=== PATIENT | female | born 1950 | race Caucasian/White ===

== ENCOUNTER 2016-08-26 09:26 | Observation (INO) ==
[2016-08-26] MEDS ORDERED: 0.9 % Sodium Chloride 1,000 ML IVC ONE (09:43)
[2016-08-26 10:06] LABS: Bilirubin,Urine Negative (Negative); Blood,Urine Negative (Negative); Color,Urine Yellow (Yellow); Glucose,Urine (UA) Normal (Normal); Ketones,Urine Negative (Negative); Leukocyte Esterase,Urine Negative (Negative); Nitrite,Urine Negative (Negative); Protein,Urine 30 mg/dL (Neg-Trace); Specific Gravity,Urine 1.017 (1.010-1.025); Urobilinogen,Urine Normal (Normal)
[2016-08-26 10:08] LABS: Bacteria,Urine None Seen per hpf (None-Few); Hyaline Casts,Urine None Seen per lpf (None-Few); RBC,Urine 0-3 per hpf (0-3); Squamous Epithelial Cell,Urine Many per lpf (None-Few); WBC,Urine 0-3 per hpf (0-3)
[2016-08-26 10:09] LABS: Clarity,Urine Clear (Clear)
--- NOTE | 2016-08-26 10:20 | Emergency Department Note ---
Disposition Clinical Impression: Acute cholecystitis Disposition: Admitted As Inpatient Condition: Fair Referrals: Fabiana Gonzalez, YENY [Primary Care Provider] - Forms: ED Satisfaction Letter Time of Disposition: 14:43 Abdominal Pain HPI - General Chief Complaint: ED Weakness Stated Complaint: ABD pain,weakness,syncopal Time Seen by Provider: 08/26/16 09:42 Source: patient, family Mode of arrival: ambulatory Nursing Notes Reviewed: Yes Vital Signs Reviewed: Yes - History of Present Illness HPI Narrative: Patient is a 65-year-old female who presents with same day history of abdominal pain. Pain began in the middle of the night and gradually worsened to a peak at about 1 AM this morning. Patient describes the pain as a steady right sided back pain that wraps around the right lateral side to the right upper quadrant. Patient denies having had pain like this in the past. Pain is rated an 8 out of 10. Pain is associated with diaphoresis, weakness, dizziness , lightheadedness, and nausea, multiple episodes of nonbilious vomiting. Upon presentation to [facility] patient had an episode of syncope or near syncope during transfer from a bench to wheelchair. Patient had decreased responsiveness following this episode but regained positiveness a few minutes later. Patient admits recent sinus infection which was treated with a Z -Arnold. She states last antibiotic pill was taken last Tuesday. Denies ear pain , nasal congestion, sore throat, chest pain, racing heart, palpitations, peripheral edema, dyspnea, cough, wheeze, hematemesis, diarrhea, constipation, hematochezia, melena, muscle aches, joint pain, rash. Pain Scale: 8 - Related Data Home Medications Medication Instructions Recorded Confirmed Aspirin 325 mg PO DAILY 06/11/15 07/10/15 Varenicline tartrate [Chantix 1 each PO AD 06/11/15 07/10/15 Starter Month Pack] Nitroglycerin [Nitrostat] 0.4 mg SL Q5-6MIN PRN 07/10/15 07/10/15 Atorvastatin Calcium [Lipitor] 20 mg PO DAILY 08/26/16 08/26/16 Cholecalciferol (D-3) [Vitamin D] 1,000 unit PO DAILY 08/26/16 08/26/16 Gabapentin [Neurontin] 300 mg PO TID 08/26/16 08/26/16 Metoprolol XL (24 HR) Succ [Toprol 25 mg PO DAILY 08/26/16 08/26/16 XL] Allergies Allergy/AdvReac Type Severity Reaction Status Date / Time venom-honey bee Allergy See Verified 06/11/15 19:47 [bee venom (honey bee)] Comments All systems ED: reviewed and negative except as stated. Constitutional: Reports: as per HPI Eyes: Reports: as per HPI ENT ED: Reports: as per HPI Cardiovascular: Reports: as per HPI Respiratory: Reports: as per HPI Gastrointestinal: Reports: as per HPI Musculoskeletal: Reports: as per HPI Integumentary: Reports: as per HPI Neurological: Reports: as per HPI Psychiatric: Reports: as per HPI Endocrine: Reports: as per HPI Hematological/Lymphatic: Reports: as per HPI Allergic/Immunologic: Reports: as per HPI Abdominal Pain PMH - Past Medical History Medical history: Reports: hyperlipidemia, hypertension, other (Previous history of pancreatitis) Female Surgical History: Reports: other CONTENT EDITOR history: Reports: bilateral tubal ligation Psychiatric history: Reports: no psych history - Social History Smoking status: Former smoker Alcohol use: Reports: none Drug use: Reports: none Physical Exam - General Limitations: no limitations General appearance: alert, in distress - Eye Eye exam: Present: normal appearance, EOMI - ENT ENT exam: normal exam, mucous membranes dry - Neck Neck exam: Present: normal inspection, full ROM - Respiratory Respiratory exam: Present: normal lung sounds bilaterally. Absent: respiratory distress, wheezes, stridor, accessory muscle use - Cardiovascular Cardiovascular exam: Present: regular rate, normal rhythm, systolic murmur (1/6 systolic murmur), +S2 - Abdominal Exam Abdominal exam: Present: soft, tenderness (Exquisite tenderness to palpation of right upper quadrant. Negative Koo sign.), guarding (Voluntary guarding to palpation of right upper quadrant and right lower quadrant), normal bowel sounds. Absent: distention, rebound, rigidity Abdominal tenderness: Present: RUQ (.), RLQ, moderate - Extremities Exam Extremities exam: Present: full ROM - Neurological Exam Neurological exam: Present: oriented X3, CN II-XII intact - Psychiatric Psychiatric exam: Present: normal affect, normal mood - Skin Skin exam: Present: warm, dry, intact Course Vital Signs Temperature 97.7 F 08/26/16 09:36 Pulse Rate 72 08/26/16 09:36 Respiratory Rate 20 08/26/16 09:36 Blood Pressure 188/87 08/26/16 09:36 O2 Sat by Pulse Oximetry 100 08/26/16 09:36 Temperature 97.7 F 08/26/16 09:36 Pulse Rate 80 08/26/16 11:41 Respiratory Rate 18 08/26/16 11:41 Blood Pressure 173/86 08/26/16 11:41 O2 Sat by Pulse Oximetry 96 08/26/16 11:41 Oxygen Delivery Oxygen Delivery Room Air Abdominal Pain - MDM Narrative Medical decision making narrative: Patient is a 65F who presented to to hospital with 1 day history of RUQ abdominal pain associated with nausea, bilious vomiting. Labs revealed elevated WBC and Alk phos. Bedside US was performed, which ruled out presence of AAA. Beside US revealed multiple cholelithiasis. CT scan of abdomen revealed no AAA, nephrolithiasis, or intra-abdominal process. However, CT did demonstrate cholelithiasis. RUQ US was performed which revealed GB wall thickening with positive sonographic Vandana's sign. Patient has clinical and radiographical presentation of acute cholecystitis. Surgery has accepted this patient. - Lab Data Lab results reviewed: Yes I reviewed the patient's lab results. Result diagrams: 08/26/16 10:46 08/26/16 10:13 Lab Results 08/26/16 08/26/16 08/26/16 Range/Units 09:42 10:13 10:13 WBC (4.3-11.1) K/mcL RBC (3.82-4.97) M/mcL Hgb (11.5-15.4) g/dL Hct (35.3-44.9) % MCV (83.0-100.0) fL MCH (28.0-33.3) pg MCHC (31.6-35.5) g/dL RDW (11.5-14.5) % Plt Count (140-400) K/mcL MPV (9.4-12.4) fL Immature Gran % (0-4) % Seg Neutrophils % % Lymphocytes % % Monocytes % % Eosinophils % % Basophils % % Neutrophils # (1.6-8.9) K/mcL Lymphocytes # (0.6-4.6) K/mcL Monocytes # (0.0-1.3) K/mcL Eosinophils # (0.0-0.6) K/mcL Basophils # (0.0-0.2) K/mcL Sodium 140 (136-145) mEq/L Potassium 3.7 (3.5-4.5) mEq/L Chloride 105 (98-109) mEq/L Carbon Dioxide 25 (19-29) mEq/L BUN 14 (7-20) mg/dL Creatinine 0.79 (0.57-1.11) mg/dL Est GFR ( Amer) > 60 (> 60) Est GFR (Non-Af Amer) > 60 (> 60) BUN/Creatinine Ratio 18 (6-26) Glucose 148 H (70-99) mg/dL Calculated Osmolality 293 (280-300) Lactic Acid (0.5-2.2) mmol/L Calcium 9.3 (8.6-10.8) mg/dL Total Bilirubin 0.3 (0.2-1.2) mg/dL AST 17 (5-34) Units/L ALT 18 (0-55) Units/L Alkaline Phosphatase 137 H (38-126) Units/L Troponin I 0.01 (0-0.03) ng/mL Serum Total Protein 8.0 (6.0-8.3) g/dL Albumin 3.6 (3.5-5.0) g/dL Globulin 4.4 H (2.4-3.5) g/dL Albumin/Globulin Ratio 0.8 L (1.1-2.2) Lipase 43 (8-78) Units/L Urine Color Yellow (Yellow) Urine Clarity Clear (Clear) Urine pH 8.0 (5.0-8.0) pH Units Ur Specific [place] 1.017 (1.010-1.025) Urine Protein 30 H (Neg-Trace) mg/dL Urine Glucose (UA) Normal (Normal) mg/dL Urine Ketones Negative (Negative) mg/dL Urine Blood Negative (Negative) Urine Nitrite Negative (Negative) Urine Bilirubin Negative (Negative) Urine Urobilinogen Normal (Normal) mg/dL Ur Leukocyte Esterase Negative (Negative) Urine Microscopic RBC 0-3 (0-3) per hpf Urine Microscopic WBC 0-3 (0-3) per hpf Ur Squamous Epith Cells Many H (None-Few) per lpf Urine Bacteria None Seen (None-Few) per hpf Hyaline Casts None Seen (None-Few) per lpf Ur Culture Indicated? NO (NO) Specimen Rejected 08/26/16 08/26/16 08/26/16 Range/Units 10:22 10:23 10:46 WBC 17.1 H (4.3-11.1) K/mcL RBC 5.25 H (3.82-4.97) M/mcL Hgb 15.0 (11.5-15.4) g/dL Hct 44.3 (35.3-44.9) % MCV 84.4 (83.0-100.0) fL MCH 28.6 (28.0-33.3) pg MCHC 33.9 (31.6-35.5) g/dL RDW 13.2 (11.5-14.5) % Plt Count 271 (140-400) K/mcL MPV 9.6 (9.4-12.4) fL Immature Gran % 0.7 (0-4) % Seg Neutrophils % 89.7 % Lymphocytes % 6.2 % Monocytes % 2.9 % Eosinophils % 0.1 % Basophils % 0.4 % Neutrophils # 15.3 H (1.6-8.9) K/mcL Lymphocytes # 1.1 (0.6-4.6) K/mcL Monocytes # 0.5 (0.0-1.3) K/mcL Eosinophils # 0.0 (0.0-0.6) K/mcL Basophils # 0.1 (0.0-0.2) K/mcL Sodium (136-145) mEq/L Potassium (3.5-4.5) mEq/L Chloride (98-109) mEq/L Carbon Dioxide (19-29) mEq/L BUN (7-20) mg/dL Creatinine (0.57-1.11) mg/dL Est GFR ( Amer) (> 60) Est GFR (Non-Af Amer) (> 60) BUN/Creatinine Ratio (6-26) Glucose (70-99) mg/dL Calculated Osmolality (280-300) Lactic Acid 0.8 (0.5-2.2) mmol/L Calcium (8.6-10.8) mg/dL Total Bilirubin (0.2-1.2) mg/dL AST (5-34) Units/L ALT (0-55) Units/L Alkaline Phosphatase (38-126) Units/L Troponin I (0-0.03) ng/mL Serum Total Protein (6.0-8.3) g/dL Albumin (3.5-5.0) g/dL Globulin (2.4-3.5) g/dL Albumin/Globulin Ratio (1.1-2.2) Lipase (8-78) Units/L Urine Color (Yellow) Urine Clarity (Clear) Urine pH (5.0-8.0) pH Units Ur Specific [place] (1.010-1.025) Urine Protein (Neg-Trace) mg/dL Urine Glucose (UA) (Normal) mg/dL Urine Ketones (Negative) mg/dL Urine Blood (Negative) Urine Nitrite (Negative) Urine Bilirubin (Negative) Urine Urobilinogen (Normal) mg/dL Ur Leukocyte Esterase (Negative) Urine Microscopic RBC (0-3) per hpf Urine Microscopic WBC (0-3) per hpf Ur Squamous Epith Cells (None-Few) per lpf Urine Bacteria (None-Few) per hpf Hyaline Casts (None-Few) per lpf Ur Culture Indicated? (NO) Specimen Rejected Volume 08/26/16 Range/Units 11:44 WBC (4.3-11.1) K/mcL RBC (3.82-4.97) M/mcL Hgb (11.5-15.4) g/dL Hct (35.3-44.9) % MCV (83.0-100.0) fL MCH (28.0-33.3) pg MCHC (31.6-35.5) g/dL RDW (11.5-14.5) % Plt Count (140-400) K/mcL MPV (9.4-12.4) fL Immature Gran % (0-4) % Seg Neutrophils % % Lymphocytes % % Monocytes % % Eosinophils % % Basophils % % Neutrophils # (1.6-8.9) K/mcL Lymphocytes # (0.6-4.6) K/mcL Monocytes # (0.0-1.3) K/mcL Eosinophils # (0.0-0.6) K/mcL Basophils # (0.0-0.2) K/mcL Sodium (136-145) mEq/L Potassium (3.5-4.5) mEq/L Chloride (98-109) mEq/L Carbon Dioxide (19-29) mEq/L BUN (7-20) mg/dL Creatinine (0.57-1.11) mg/dL Est GFR ( Amer) (> 60) Est GFR (Non-Af Amer) (> 60) BUN/Creatinine Ratio (6-26) Glucose (70-99) mg/dL Calculated Osmolality (280-300) Lactic Acid 1.7 (0.5-2.2) mmol/L Calcium (8.6-10.8) mg/dL Total Bilirubin (0.2-1.2) mg/dL AST (5-34) Units/L ALT (0-55) Units/L Alkaline Phosphatase (38-126) Units/L Troponin I (0-0.03) ng/mL Serum Total Protein (6.0-8.3) g/dL Albumin (3.5-5.0) g/dL Globulin (2.4-3.5) g/dL Albumin/Globulin Ratio (1.1-2.2) Lipase (8-78) Units/L Urine Color (Yellow) Urine Clarity (Clear) Urine pH (5.0-8.0) pH Units Ur Specific [place] (1.010-1.025) Urine Protein (Neg-Trace) mg/dL Urine Glucose (UA) (Normal) mg/dL Urine Ketones (Negative) mg/dL Urine Blood (Negative) Urine Nitrite (Negative) Urine Bilirubin (Negative) Urine Urobilinogen (Normal) mg/dL Ur Leukocyte Esterase (Negative) Urine Microscopic RBC (0-3) per hpf Urine Microscopic WBC (0-3) per hpf Ur Squamous Epith Cells (None-Few) per lpf Urine Bacteria (None-Few) per hpf Hyaline Casts (None-Few) per lpf Ur Culture Indicated? (NO) Specimen Rejected - Radiology Data Radiology results reviewed: Yes I reviewed the patient's radiology results. Chest X-Ray 08/26/16 09:44 IMPRESSION: No acute cardiopulmonary process. D/ 08/26/2016 11:15:34 Domingo Fernandez MD / Elva Ludwig Interpreting Provider: Domingo Fernandez MD Abdomen/Pelvis CT 08/26/16 09:54 IMPRESSION: 1. No acute intra-abdominal abnormality. 2. No acute intrapelvic abnormality. 3. No urinary tract calcifications. 4. Cholelithiasis. D/ / Eros Heard MD / Eros Heard MD Interpreting Provider: Eros Heard MD Gallbladder Ultrasound 08/26/16 12:00 IMPRESSION: Cholelithiasis along with findings concerning for acute cholecystitis including mild diffuse gallbladder wall thickening along with positive sonographic Koo's sign. Mild distention of common bile duct measuring 0.7 cm but without definite intraductal abnormality noted. Correlate clinically and with laboratory values and if there is clinical concern for biliary obstruction or choledocholithiasis consider further evaluation with MRCP or ERCP. D/ / 08/26/2016 12:53:58 Richard Liang MD / bernie Interpreting Provider: Richard Liang MD - EKG Data EKG attestation: Yes I reviewed and interpreted this EKG. EKG results narrative: EKG NSR, rate 69bpm, diffuse T wave inversions that were demonstrated on previous EKG dated 06/12/15.
[2016-08-26] MEDS ORDERED: Ondansetron 4 MG/2 ML VIAL IVP PRN ×3 (10:23→21:37)
[2016-08-26] MEDS ORDERED: *HR* Morphine 2 MG/ML SYRINGE IVP PRN (10:23)
--- NOTE | 2016-08-26 10:28 | Emergency Department Note ---
START Narrative - START START: I examined this patient and my medical decision-making was reviewed with the CINNAMON GRINDER/PA/Advanced Practice Nurse/Resident Physician. I agree with the documented findings, disposition and treatment plan as described except to the extent set forth below. I did see the patient spoke with her and examined her and a bedside ultrasound was done which does not show evidence of abdominal aortic aneurysm but there are some hyperechoic areas in the gallbladder consistent w cholelithiasis. Her pain started right flank and radiated around to the right upper quadrant and she did have a syncopal episode which was preceded by lightheadedness. She was caught by her daughter so there was no injury. No biting of the tongue, blood in the mouth or incontinence. She denies any localized numbness or weakness of the extremities, slurred speech, facial droop or confusion. CT scan of the abdomen will be done and if negative she will get a ultrasound right upper quadrant, labs are pending, IV fluids, I did review the patient's EKG which does show normal sinus rhythm and does have evidence of ST and T-wave changes and we were looking for a previous EKG to compare this to. Labs including troponin are pending. [id number] I did compare this EKG to the previous EKG which was done on 06/12/2015 and there are not new significant changes. This does appear very similar to the previous EKG. Test results are pending. 1034
[2016-08-26 10:33] LABS: Alanine Aminotransferase 18 Units/L (0-55); Albumin 3.6 g/dL (3.5-5.0); Albumin/Globulin Ratio 0.8 (1.1-2.2); Alkaline Phosphatase 137 Units/L (38-126); Aspartate Amino Transferase 17 Units/L (5-34); BUN/Creatinine Ratio 18 (6-26); Bilirubin,Total 0.3 mg/dL (0.2-1.2); Blood Urea Nitrogen 14 mg/dL (7-20); Calcium 9.3 mg/dL (8.6-10.8); Carbon Dioxide 25 mEq/L (19-29); Chloride 105 mEq/L (98-109); Globulin 4.4 g/dL (2.4-3.5); Glucose 148 mg/dL (70-99); Lipase 43 Units/L (8-78); Osmolality,Calculated 293 (280-300); Potassium 3.7 mEq/L (3.5-4.5); Sodium 140 mEq/L (136-145); eGFR For African Americans > 60 (> 60); eGFR For Non-African Americans > 60 (> 60)
[2016-08-26 10:59] LABS: Basophils # 0.1 K/mcL (0.0-0.2); Basophils % 0.4 %; Eosinophils % 0.1 %; Hematocrit 44.3 % (35.3-44.9); Immature Granulocytes % 0.7 % (0-4); Lymphocytes # 1.1 K/mcL (0.6-4.6); Lymphocytes % 6.2 %; Mean Corpuscular HGB Conc 33.9 g/dL (31.6-35.5); Mean Corpuscular Hemoglobin 28.6 pg (28.0-33.3); Mean Corpuscular Volume 84.4 fL (83.0-100.0); Mean Platelet Volume 9.6 fL (9.4-12.4); Monocytes # 0.5 K/mcL (0.0-1.3); Monocytes % 2.9 %; Neutrophils # 15.3 K/mcL (1.6-8.9); Platelet Count 271 K/mcL (140-400); Red Blood Count 5.25 M/mcL (3.82-4.97); Red Cell Distribution Width 13.2 % (11.5-14.5); Segmented Neutrophils % 89.7 %
[2016-08-26] MEDS ORDERED: *HR* Promethazine 25 MG/ML VIAL IVP ONE (11:14)
[2016-08-26] MEDS ORDERED: *HR* Morphine 2 MG/ML SYRINGE IVP ONE (11:14)
[2016-08-26] MEDS ORDERED: cefOXitin 2,000 MG in D5% in Water (Mini-Bag+) 100 ML IVPB ONE (14:11)
[2016-08-26] MEDS ORDERED: Naloxone 0.4 MG/ML INJ IVP PRN ×2 (15:21→21:37)
[2016-08-26] MEDS ORDERED: *HR* HYDROmorphone (PF) 1 MG/ML SYRINGE IVP PRN ×3 (15:24→21:37)
--- NOTE | 2016-08-26 15:25 | General Surg History&Physical ---
<Noemi Christopher Willian - Last Filed: 08/26/16 15:22> Date of Encounter: 08/26/16 Time of Encounter: 15:00 Assessment and Plan (1) Acute cholecystitis Current Visit: Yes Status: Acute The assessment and plan as outlined above was discussed with the patient and/or family members who expressed understanding and agreement. All questions were answered. Nothing by mouth IV fluids at 75 mL per hour IV antibiotics- Mefoxin 2 g every 8 hours Supportive care and pain control Risks, benefits, alternatives, expected outcomes reviewed with the patient is agreement to proceed to the operating room with Dr. Bronson for laparoscopic cholecystectomy in the next 24 hours Incentive spirometer every 1 hour while awake PPI therapy daily (2) DVT prophylaxis Current Visit: Yes Status: Acute The assessment and plan as outlined above was discussed with the patient and/or family members who expressed understanding and agreement. All questions were answered. EPCDs to bilateral lower extremities for DVT prophylaxis History of Present Illness Chief complaint: Abdominal pain HPI: Ms. Devine is a 65 year old female with a past medical history significant for pancreatitis, bleeding ulcer, sciatica, hypertension, hypercholesterolemia. She presents to the hospital with acute onset of right upper quadrant abdominal pain at 1 AM this morning. She states that the pain is severe in the right upper quadrant and does radiate into her back. She describes it as a sharp and stabbing pain. She states the pain is constant and moving makes it worse. Nothing makes it better. She has never experienced pain like this in the past. She admits to bloating of her abdomen. She did have episodes of nausea and vomiting prior to coming to the hospital. She states that the emesis was bilious in nature. She admits to fevers and chills however she states she did not check her temperature. She denies any changes in bowel habits. Denies any melena or hematochezia. She does admit to having reflux and her symptoms have been worse than typical. She denies any difficulty with urination. She has had a gallbladder ultrasound which shows concerns for acute cholecystitis. The patient be admitted to the hospital for further workup and treatment. Past Med Surg Social Fam HX - Past Medical History Source: patient, old records reviewed Medical history: GERD, hyperlipidemia, hypertension, other (Previous history of pancreatitis, sciatica, bleeding ulcer) Psychiatric history: no psych history - Past Surgical History Surgical History: other (Tubal ligation, hemorrhoidectomy, dilation and curettage, bladder repair, colonoscopy every 2 years (last was 2 years ago)) - Social History Smoking Status: Former smoker (Quit 1 year ago) Smokeless Tobacco Status: No Alcohol use: none Drug use: none Current living situation: Home - Independent Activity Level: Independent ambulation - Family History Father Living Status: Age at : 68 Cause of : CHF Hx Family Cardiac Disorders: Yes (CHF) Hx Family Cancer: Yes (LUNG) Mother Living Status: Age at : 60 Cause of : colon cancer Hx Family Cancer: Yes (colon) Brother Living Status: Still Living Hx Family Endocrine Disorder: Yes (Diabetes mellitus) Sister Living Status: Still Living Hx Family Endocrine Disorder: Yes (Diabetes mellitus) Son Living Status: Still Living Hx Family Neurologic Disorders: Yes (Epilepsy) Medications and Allergies Aspirin 325 mg PO DAILY 06/11/15 [History] Varenicline tartrate [Chantix Starter Month Pack] 1 tab PO AD 06/11/15 [History] Nitroglycerin [Nitrostat] 0.4 mg SL Q5-6MIN PRN 07/10/15 [History] Atorvastatin Calcium [Lipitor] 20 mg PO DAILY 08/26/16 [History] Cholecalciferol (D-3) [Vitamin D] 1,000 unit PO DAILY 08/26/16 [History] Gabapentin [Neurontin] 300 mg PO TID 08/26/16 [History] Metoprolol XL (24 HR) Succ [Toprol XL] 25 mg PO DAILY 08/26/16 [History] Allergies venom-honey bee [bee venom (honey bee)] Allergy (Verified 06/11/15 19:47) See Comments Patient has swelling where sting is. Review of Systems All systems PM: reviewed and no additional remarkable complaints except as stated (in the HPI) All systems PM: A 10-system review of systems was performed and is negative for pertinent findings except as documented above in the HPI. General Surgery Exam Initial Vital Signs Temp Pulse Resp BP Pulse Ox 97.7 F 72 20 188/87 100 08/26/16 09:36 08/26/16 09:36 08/26/16 09:36 08/26/16 09:36 08/26/16 09:36 - General physical appearance well developed, well nourished, moderate distress, moderate pain - Eyes normal ocular movement - ENT normal mucosa, atraumatic, normocephalic - Neck trachea midline - Respiratory normal respiratory effort, clear to auscultation, other (Diminished bibasilar bases) - Cardiovascular Cardiovascular exam: Present: RRR - Abdomen Abdomen general surgery: Present: bowel sounds present, soft, tender Abdominal Tenderness: Present: RUQ - Integumentary Integumentary general surgery: Present: warm and dry - Neurologic Present: CN 2-12 grossly intact - Musculoskeletal Present: normal gait - Psychiatric Psychiatric general surgery: Present: appropriate, oriented to person, oriented to place, oriented to time, speech is normal, memory intact Results - Labs 08/26/16 10:46 08/26/16 10:13 Abnormal lab results WBC 17.1 K/mcL (4.3-11.1) H 08/26/16 10:46 RBC 5.25 M/mcL (3.82-4.97) H 08/26/16 10:46 Neutrophils # 15.3 K/mcL (1.6-8.9) H 08/26/16 10:46 Glucose 148 mg/dL (70-99) H 08/26/16 10:13 Alkaline Phosphatase 137 Units/L (38-126) H 08/26/16 10:13 Globulin 4.4 g/dL (2.4-3.5) H 08/26/16 10:13 Albumin/Globulin Ratio 0.8 (1.1-2.2) L 08/26/16 10:13 Urine Protein 30 mg/dL (Neg-Trace) H 08/26/16 09:42 Ur Squamous Epith Cells Many per lpf (None-Few) H 08/26/16 09:42 Diabetes panel 08/26/16 Range/Units 10:13 Sodium 140 (136-145) mEq/L Potassium 3.7 (3.5-4.5) mEq/L Chloride 105 (98-109) mEq/L Carbon Dioxide 25 (19-29) mEq/L BUN 14 (7-20) mg/dL Creatinine 0.79 (0.57-1.11) mg/dL Glucose 148 H (70-99) mg/dL Calcium 9.3 (8.6-10.8) mg/dL AST 17 (5-34) Units/L ALT 18 (0-55) Units/L Alkaline Phosphatase 137 H (38-126) Units/L Albumin 3.6 (3.5-5.0) g/dL Calcium panel 08/26/16 Range/Units 10:13 Calcium 9.3 (8.6-10.8) mg/dL Albumin 3.6 (3.5-5.0) g/dL Pituitary panel 08/26/16 Range/Units 10:13 Sodium 140 (136-145) mEq/L Potassium 3.7 (3.5-4.5) mEq/L Chloride 105 (98-109) mEq/L Carbon Dioxide 25 (19-29) mEq/L BUN 14 (7-20) mg/dL Creatinine 0.79 (0.57-1.11) mg/dL Glucose 148 H (70-99) mg/dL Calcium 9.3 (8.6-10.8) mg/dL Adrenal panel 08/26/16 Range/Units 10:13 Sodium 140 (136-145) mEq/L Potassium 3.7 (3.5-4.5) mEq/L Chloride 105 (98-109) mEq/L Carbon Dioxide 25 (19-29) mEq/L BUN 14 (7-20) mg/dL Creatinine 0.79 (0.57-1.11) mg/dL Glucose 148 H (70-99) mg/dL Calcium 9.3 (8.6-10.8) mg/dL Total Bilirubin 0.3 (0.2-1.2) mg/dL AST 17 (5-34) Units/L ALT 18 (0-55) Units/L Alkaline Phosphatase 137 H (38-126) Units/L Albumin 3.6 (3.5-5.0) g/dL All other labs normal. - Imaging Additional studies: Chest X-Ray 08/26/16 09:44 IMPRESSION: No acute cardiopulmonary process. D/ 08/26/2016 11:15:34 Domingo Fernandez MD / Elva Ludwig Interpreting Provider: Domingo Fernandez MD Abdomen/Pelvis CT 08/26/16 09:54 IMPRESSION: 1. No acute intra-abdominal abnormality. 2. No acute intrapelvic abnormality. 3. No urinary tract calcifications. 4. Cholelithiasis. D/ / Eros Heard MD / Eros Heard MD Interpreting Provider: Eros Heard MD Gallbladder Ultrasound 08/26/16 12:00 IMPRESSION: Cholelithiasis along with findings concerning for acute cholecystitis including mild diffuse gallbladder wall thickening along with positive sonographic Koo's sign. Mild distention of common bile duct measuring 0.7 cm but without definite intraductal abnormality noted. Correlate clinically and with laboratory values and if there is clinical concern for biliary obstruction or choledocholithiasis consider further evaluation with MRCP or ERCP. D/ / 08/26/2016 12:53:58 Richard Liang MD / bernie Interpreting Provider: Richard Liang MD - Attending Attestation I examined this patient and my medical decision-making was reviewed with the [employer] ENF[employer]CEMENT OFFICER/PA/Advanced Practice Nurse/Resident Physician. I agree with the documented findings, disposition and treatment plan as described except to the extent set forth below. <Guillermo Bronson M - Last Filed: 08/26/16 16:51> Date of Encounter: 08/26/16 History of Present Illness HPI: Ms. Devine is a 65 year old female Review of Systems All systems PM: A 10-system review of systems was performed and is negative for pertinent findings except as documented above in the HPI. General Surgery Exam Initial Vital Signs Temp Pulse Resp BP Pulse Ox 97.7 F 72 20 188/87 100 08/26/16 09:36 08/26/16 09:36 08/26/16 09:36 08/26/16 09:36 08/26/16 09:36 Results - Labs 08/26/16 10:46 08/26/16 10:13 Abnormal lab results WBC 17.1 K/mcL (4.3-11.1) H 08/26/16 10:46 RBC 5.25 M/mcL (3.82-4.97) H 08/26/16 10:46 Neutrophils # 15.3 K/mcL (1.6-8.9) H 08/26/16 10:46 Glucose 148 mg/dL (70-99) H 08/26/16 10:13 Alkaline Phosphatase 137 Units/L (38-126) H 08/26/16 10:13 Globulin 4.4 g/dL (2.4-3.5) H 08/26/16 10:13 Albumin/Globulin Ratio 0.8 (1.1-2.2) L 08/26/16 10:13 Urine Protein 30 mg/dL (Neg-Trace) H 08/26/16 09:42 Ur Squamous Epith Cells Many per lpf (None-Few) H 08/26/16 09:42 All other labs normal. - Attending Attestation I reviewed the above physical exam and assessment and agree. The patient has had a several month history of RUQ pain radiating to the right upper back, but the pain worsened at 1am. She admits to nausea and vomiting as well as pain. US noted cholecystitis, acute. Will plan for a laparoscopic cholecystectomy today. Discussed with the patient and she agrees to the above plan.
[2016-08-26] MEDS ORDERED: 0.9 % Sodium Chloride 1,000 ML IVC SCH ×2 (15:30→21:37)
--- NOTE | 2016-08-26 15:30 | Anesthesia Evaluation PreOp ---
Date of Encounter: 08/26/16 Time of Encounter: 15:27 - Past History Planned Operation: lap lissa Cardiac History: HTN, Other (c 07/01: ef 67, no cad, mid systolic bridging of LAD) Pulmonary History: Smoker SPINNER IRON History: Denies Any Significant HX Other Medical History: Denies Any Significant HX Anesthesia History: No Prior Anesthetic Complications, Past Anesthesia (btl, bladder sling) Alcohol Use: none Drug use: none Medications and Allergies Aspirin 325 mg PO DAILY 06/11/15 [History] Varenicline tartrate [Chantix Starter Month Pack] 1 tab PO AD 06/11/15 [History] Nitroglycerin [Nitrostat] 0.4 mg SL Q5-6MIN PRN 07/10/15 [History] Atorvastatin Calcium [Lipitor] 20 mg PO DAILY 08/26/16 [History] Cholecalciferol (D-3) [Vitamin D] 1,000 unit PO DAILY 08/26/16 [History] Gabapentin [Neurontin] 300 mg PO TID 08/26/16 [History] Metoprolol XL (24 HR) Succ [Toprol XL] 25 mg PO DAILY 08/26/16 [History] Allergies venom-honey bee [bee venom (honey bee)] Allergy (Verified 06/11/15 19:47) See Comments Patient has swelling where sting is. - Meds/Allergy Pre-op Review Medications Reviewed: Yes Allergies Reviewed: Yes Beta Blockers on Current Med List: No Anesthesia Results - Labs 08/26/16 10:46 08/26/16 10:13 - Imaging EKG: report reviewed (sr, no sig changes from ekg 2015) Anesthesia Exam Vital Signs/O2 Sat/Glucose, Most Current Pulse Resp BP Pulse Ox 08/26/16 15:13 18 160/89 08/26/16 14:26 85 18 142/68 96 08/26/16 13:10 81 18 156/70 93 08/26/16 12:50 85 18 153/70 97 08/26/16 11:41 80 18 173/86 96 Height: 1.5 Weight: 73 NPO (# of Hours): >8 - HEENT Pupil (Motor): Pupils equal, EOMI Mallampati: II Teeth: Normal Oral Opening: Greater than 3 - SPINNER IRON LOC: Oriented SPINNER IRON Motor: Normal RUE, Normal LUE, Normal RLE, Normal LLE, Normal Face SPINNER IRON Sensory: Normal: RUE, LUE, RLE, LLE, Face - Cardiac Rhythm: Regular Murmur: None - Pulmonary Breath Sounds: bilateral Clear Respiratory Effort: Symmetrical Anesthesia Assess/Plan ASA Score: 2 Modified [place] Scale for Level of Consciousness: Cooperative, oriented, and tranquil Anesthetic Plan: General Monitoring Plan: Standard Monitors Recovery Plan: PACU
[2016-08-26] MEDS ORDERED: cefOXitin 2,000 MG in D5% in Water (Mini-Bag+) 100 ML IVPB SCH (16:00)
[2016-08-26] MEDS ORDERED: *HR* Rocuronium Bromide 50 MG/5 ML VIAL ONE (16:05)
[2016-08-26] MEDS ORDERED: Lidocaine -MPF 2% 2 ML VIAL ONE (16:05)
[2016-08-26] MEDS ORDERED: *HR* FentaNYL (PF) 100 MCG/2 ML VIAL ONE ×2 (16:05→18:45)
[2016-08-26] MEDS ORDERED: Ketorolac 30 MG/ML VIAL ONE (16:05)
[2016-08-26] MEDS ORDERED: *HR* Propofol 200 MG/20 ML VIAL IVP ONE (16:05)
[2016-08-26] MEDS ORDERED: *HR* Midazolam HCl 2 MG/2 ML VIAL ONE (16:05)
[2016-08-26] MEDS ORDERED: Ondansetron 4 MG/2 ML VIAL ONE ×2 (16:05→19:14)
[2016-08-26 16:17] LABS: Prothrombin Time 11.1 Seconds (9.4-12.1)
[2016-08-26 16:20] LABS: Activated Partial Thrombo Time 30.2 Seconds (26.0-36.0)
[2016-08-26] MEDS ORDERED: *HR* Labetalol 100 MG/20 ML MDV IVP PRN (19:12)
[2016-08-26] MEDS ORDERED: *HR* Promethazine 25 MG/ML VIAL IVP PRN ×3 (19:12→21:37)
[2016-08-26] MEDS ORDERED: Dexamethasone 4 MG/ML VIAL ONE (19:14)
[2016-08-26] MEDS ORDERED: *HR* Phenylephrine 10 MG/ML VIAL ONE (19:14)
[2016-08-26] MEDS ORDERED: *HR* Succinylcholine 200 MG/10 ML VIAL IVP ONE (19:14)
[2016-08-26] MEDS ORDERED: Ringers Solution, Lactated 1,000 ML IVC SCH (19:15)
[2016-08-26] MEDS ORDERED: Neostigmine Methylsulfate 3 MG/3 ML SYRINGE ONE (19:32)
--- NOTE | 2016-08-26 19:56 | Operative Note ---
Date of procedure: 08/26/16 Pre-op diagnosis: Acute cholecystitis Post-op diagnosis: same Procedure: Laparoscopic cholecystectomy Anesthesia: NICHOL Surgeon: Guillermo Bronson Estimated blood loss (cc): 125 Specimen: gallbladder and contents Condition: stable Disposition: PACU Procedure in Detail: Date of surgery: 08/26/16 After properly identifying the patient, the patient was brought to the operating room and placed in the supine position. After proper IV sedation was achieved followed by general endotracheal intubation, the patient's abdomen was prepped and draped in a normal sterile fashion. A timeout was performed noting the patient's name and type of procedure to be performed. A subumbilical incision with an 11 blade scalpel was made down to the level of the rectus fascia. The rectus fascia was incised and the abdomen was entered and a 12 mm port was placed to the incision and the abdomen was insufflated with carbon dioxide. A laparoscopic camera was placed the port which showed no injury to the intra-abdominal organs upon entry. A subxiphoid 5 mm port and a right subcostal margin 5 mm port was then placed under direct camera visualization. The patient was placed in a reverse Trendelenburg position and the gallbladder was examined and noted to be erythematous and almost gangrenous in appearance. Omental adhesions were noted which were carefully dissected away with Bovie cauterization. The gallbladder was then decompressed with a laparoscopic needle device which allow for removal of approximately 50 mL of bilious fluid. This allowed for easier grasping of the gallbladder dome and retraction superiorly. There was significant edema and the lymphatic tissue at the level of the infundibulum. Careful dissection of the cystic duct was then performed with the [place] dissector. There was bleeding noted that was hemostatically controlled with Bovie cauterization. There was a large stone also noted at the infundibulum but a normal-appearing cystic duct was identified. The cystic duct was then clipped laparoscopic clips and incised with laparoscopic scissors. There was additional bleeding noted near the origin of the presumed cystic artery which was hemostatically controlled with pressure and clips. The cystic artery was then isolated, clipped laparoscopic clips, and incised with laparoscopic scissors. The gallbladder was then carefully dissected away from the gallbladder fossa with Bovie cauterization. A combination of Bovie cauterization and utilization of Surgicel was used to maintain hemostasis from the gallbladder fossa. Once the gallbladder was dissected off the gallbladder fossa it was removed from the abdomen via an Endobag. Reinspection of the right upper quadrant demonstrated maintenance of hemostasis and the right upper quadrant was copiously irrigated with normal saline solution. All ports are then removed from the abdomen after the abdomen was desufflated. The rectus fascia from the subumbilical incision was reapproximated with a [id number] 0 Vicryl suture. The subcutaneous tissue was reapproximated with interrupted 3-0 Vicryl sutures. The remaining epidermal and dermal layers were reapproximated with 4-0 Monocryl sutures. Needle, sponge, and instrument counts were correct 2 and the incisions were covered with Steri-Strips and Band -Aids. The patient was aroused from IV sedation, extubated in the operating room without complication, and transported to the recovery room in stable condition.
[2016-08-26] MEDS: *HR* HYDROmorphone (PF) 1 MG/ML SYRINGE IVP PRN ×2 (20:15→20:25)
[2016-08-26] MEDS ORDERED: *HR* HYDROmorphone (PF) 1 MG/ML SYRINGE ONE (20:17)
[2016-08-26] MEDS ORDERED: Acetaminophen IV 1,000 MG/100 ML INFUS..BTL IVPB ONE (20:24)
--- NOTE | 2016-08-26 21:10 | Anesthesia Evaluation Post Op ---
Date of Encounter: 08/26/16 Time of Encounter: 21:00 - Vital Signs Vital Signs: Vital Signs/O2 Sat/Glucose, Most Current Temp Pulse Resp BP Pulse Ox 08/26/16 20:29 83 16 137/59 94 08/26/16 20:19 82 16 141/66 93 08/26/16 20:09 99.6 F 83 16 160/75 98 - Lungs Lungs: Clear Ascult./Percussion - Airway Airway: Non-obstructed - Cardiovascular Regular Rate - Pain Pain Scale: 5 - Nausea Vomiting Nausea Vomiting: Not Present - Hydration Hydration: Ice chips, Has not voided - Discharge PostOp Status: Transfer Patient to floor Anes Supervising Prov Stmt: PT seen/evaluated, VSS and pt has met criteria for dischage to home. - MD Adwoa
[2016-08-26] MEDS ORDERED: *HR* Labetalol 20 MG/4 ML SYRINGE IVP PRN (21:37)
[2016-08-26] MEDS ORDERED: *HR* OxyCODONE/APAP 10/325 TABLET PO PRN (21:37)
[2016-08-26] MEDS ORDERED: Promethazine 6.25 MG in 0.9 % Sodium Chloride 50 ML IVPB PRN (21:50)
[2016-08-26 21:59] LABS: Basophils # 0.1 K/mcL (0.0-0.2); Basophils % 0.3 %; Hematocrit 41.2 % (35.3-44.9); Hemoglobin 13.9 g/dL (11.5-15.4); Immature Granulocytes % 0.7 % (0-4); Lymphocytes # 0.9 K/mcL (0.6-4.6); Lymphocytes % 3.9 %; Mean Corpuscular HGB Conc 33.7 g/dL (31.6-35.5); Mean Corpuscular Hemoglobin 28.9 pg (28.0-33.3); Mean Corpuscular Volume 85.7 fL (83.0-100.0); Mean Platelet Volume 9.4 fL (9.4-12.4); Monocytes # 1.2 K/mcL (0.0-1.3); Monocytes % 4.9 %; Platelet Count 257 K/mcL (140-400); Red Blood Count 4.81 M/mcL (3.82-4.97); Red Cell Distribution Width 13.4 % (11.5-14.5); Segmented Neutrophils % 90.2 %
[2016-08-26 22:00] LABS: Neutrophils # 21.6 K/mcL (1.6-8.9)
[2016-08-26 22:11] LABS: BUN/Creatinine Ratio 14 (6-26); Blood Urea Nitrogen 11 mg/dL (7-20); Calcium 8.5 mg/dL (8.6-10.8); Carbon Dioxide 23 mEq/L (19-29); Chloride 105 mEq/L (98-109); Glucose 139 mg/dL (70-99); Osmolality,Calculated 286 (280-300); Potassium 4.3 mEq/L (3.5-4.5); Sodium 137 mEq/L (136-145); eGFR For African Americans > 60 (> 60); eGFR For Non-African Americans > 60 (> 60)
[2016-08-26 22:22] LABS: Platelet Estimate Normal (Normal)
[2016-08-26] MEDS: cefOXitin 2,000 MG in D5% in Water (Mini-Bag+) 100 ML IVPB SCH (23:10)
[2016-08-27] MEDS ORDERED: *HR* Heparin 5,000 UNIT/ML VIAL SQ SCH (06:00)
[2016-08-27] MEDS: cefOXitin 2,000 MG in D5% in Water (Mini-Bag+) 100 ML IVPB SCH (07:36)
[2016-08-27 11:08] VITALS: BP 105/56
--- NOTE | 2016-08-27 11:13 | Discharge Summary ---
<Noemi Christopher Willian - Last Filed: 08/27/16 11:11> Date of Encounter: 08/27/16 Time of Encounter: 10:30 - Discharge Diagnosis (1) Acute cholecystitis Priority: Primary Status: Resolved - Discharge Medications Prescriptions: OxyCODONE/APAP 10/325 [Percocet 10/325 MG] 1 each PO Q6HR PRN #30 tablet PRN Reason: Pain Amoxicillin/Clavulanate [Augmentin] 875 mg PO BIDWM #10 tablet Docusate [Colace] 100 mg PO BID #30 capsule Home Medications: Aspirin 325 mg PO DAILY 06/11/15 [History] Varenicline tartrate [Chantix Starter Month Pack] 1 tab PO AD 06/11/15 [History] Nitroglycerin [Nitrostat] 0.4 mg SL Q5-6MIN PRN 07/10/15 [History] Atorvastatin Calcium [Lipitor] 20 mg PO DAILY 08/26/16 [History] Cholecalciferol (D-3) [Vitamin D] 1,000 unit PO DAILY 08/26/16 [History] Gabapentin [Neurontin] 300 mg PO TID 08/26/16 [History] Metoprolol XL (24 HR) Succ [Toprol Xl] 25 mg PO DAILY 08/26/16 [History] Amoxicillin/Clavulanate [Augmentin] 875 mg PO BIDWM #10 tablet 08/27/16 [Rx] Docusate [Colace] 100 mg PO BID #30 capsule 08/27/16 [Rx] OxyCODONE/APAP 10/325 [Percocet 10/325 MG] 1 each PO Q6HR PRN #30 tablet [Rx] Allergies/Adverse Reactions: Allergies venom-honey bee [bee venom (honey bee)] Allergy (Verified 06/11/15 19:47) See Comments Patient has swelling where sting is. General Surgery Exam Initial Vital Signs Temp Pulse Resp BP Pulse Ox 97.7 F 72 20 188/87 100 08/26/16 09:36 08/26/16 09:36 08/26/16 09:36 08/26/16 09:36 08/26/16 09:36 - General physical appearance well developed, well nourished, no distress - Eyes normal ocular movement - ENT normal mucosa, atraumatic, normocephalic - Neck trachea midline - Respiratory normal respiratory effort, clear to auscultation - Cardiovascular Cardiovascular exam: Present: RRR, 15, 16 - Abdomen Abdomen general surgery: Present: bowel sounds present, soft, tender (Expected postoperative tenderness) - Incision Incision: Present: clean and dry, intact - Integumentary Integumentary general surgery: Present: warm and dry - Neurologic Present: CN 2-12 grossly intact - Psychiatric Psychiatric general surgery: Present: A&Ox3 Date of admission: 08/26/16 15:01 Primary care physician: Fabiana Gonzalez CNP Discharging clinician: Guillermo Bronson (Frankie Christopher) Anticipated date of discharge: 08/27/16 - Patient Status Disposition: Home, Self-Care Condition: Good Functional capacity at discharge: independent ambulation Overall status at discharge: patient is progressing back to baseline - Discharge Instructions Instructions: Oxycodone/Acetaminophen (By mouth), Amoxicillin/Clavulanate Potassium (By mouth), Laxative, Stool Softeners (By mouth), Cholecystitis (DC), Laparoscopic Cholecystectomy (DC) Follow Up With: Fabiana Gonzalez CNP [Primary Care Provider] - Noemi Christopher CNP [Advanced Practice Nurse] - Guillermo Bronson MD [Partnered Physician] - 09/09/16 4:15 pm (Surgery follow- up) Additional Instructions: #1 may shower, no tub bath for 2 weeks #2 wash incisions with soap and water and pat dry daily #3 no lifting, pushing, pulling more than 15 pounds for the next 2 weeks #4 no driving until off narcotics for 24 hours and able to safely react in the car #5 may climb stairs - Diet and Activity Activity: other (See additional instructions above) Diet: advance to your usual diet - Hospital Course Hospital course: Ms. Devine is a 65 year old female presented to the hospital with acute onset of right upper quadrant abdominal pain. She was found to have acute cholecystitis and was taken to the operating room for laparoscopic cholecystectomy with Dr. Bronson. On postoperative day #1, her preoperative pain has resolved. She is tolerating a diet without nausea vomiting, vital signs are stable and afebrile, she is voiding and ambulating without difficulty, her pain is well- controlled. We will begin discharge charge planning at this time and plan for outpatient follow-up in the next 10-14 days. - Time Spent with Patient Total time spent providing and/or coordinating discharge services: Less than 30 minutes Labs on day of discharge: Labs from last 24 hours 08/26/16 08/26/16 08/26/16 21:51 21:51 15:46 WBC 23.9 H RBC 4.81 Hgb 13.9 Hct 41.2 MCV 85.7 MCH 28.9 MCHC 33.7 RDW 13.4 Plt Count 257 MPV 9.4 Immature Gran % 0.7 Seg Neutrophils % 90.2 Lymphocytes % 3.9 Monocytes % 4.9 Eosinophils % 0.0 Basophils % 0.3 Neutrophils # 21.6 H Lymphocytes # 0.9 Monocytes # 1.2 Eosinophils # 0.0 Basophils # 0.1 Platelet Estimate Normal PT 11.1 INR 1.0 APTT 30.2 Sodium 137 Potassium 4.3 Chloride 105 Carbon Dioxide 23 BUN 11 Creatinine 0.77 Est GFR ( Amer) > 60 Est GFR (Non-Af Amer) > 60 BUN/Creatinine Ratio 14 Glucose 139 H Calculated Osmolality 286 Calcium 8.5 L - Attending Attestation I examined this patient and my medical decision-making was reviewed with the TEMPORARY RECEPTIONIST/PA/Advanced Practice Nurse/Resident Physician. I agree with the documented findings, disposition and treatment plan as described except to the extent set forth below. <Guillermo Bronson M - Last Filed: 08/30/16 07:28> Date of Encounter: 08/30/16 General Surgery Exam Initial Vital Signs Temp Pulse Resp BP Pulse Ox 97.7 F 72 20 188/87 100 08/26/16 09:36 08/26/16 09:36 08/26/16 09:36 08/26/16 09:36 08/26/16 09:36 Date of admission: 08/26/16 15:01 Primary care physician: Fabiana Gonzalez CNP - Hospital Course Hospital course: Ms. Devine is a 65 year old female - Time Spent with Patient Total time spent providing and/or coordinating discharge services: - Attending Attestation Review the above physical examination and assessment. Was present during the evaluation and agree with the above plan. Patient will be taught how to monitor the KEM drainage. Dressing is clean dry and intact. Will follow up in the office within one week.
--- NOTE | 2016-08-30 17:38 | Electrocardiograph Report ---
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
== END 2016-08-27 13:50 | disposition home or self-care (01) ==
LOC: EMEROO 09:26 → 3ANU 09:26
PROVIDERS: ADMIT Surgery; ATTEND Surgery